=== PATIENT | male | born 1965 | race African-American/Black ===

== ENCOUNTER 2021-11-12 16:47 | Inpatient (IN) | payer OTHER ==
[2021-11-12] MEDS ORDERED: P-EPHED 60MG/TRIPROLIDI 2.5MG TABLET PO PRN (18:57)
[2021-11-12] MEDS ORDERED: guaiFENesin 200 MG/10 ML 10 ML UNIT-DOSE CUPS PO PRN (18:57)
[2021-11-12] MEDS ORDERED: NICOTINE POLACRILEX 2 MG GUM BC PRN (18:57)
[2021-11-12] MEDS ORDERED: MAGNESIUM HYDROX 2400MG/30ML ORAL SUSPENSION 30 ML CUP PO PRN (18:57)
[2021-11-12] MEDS ORDERED: MAG HYDROX/AL HYDROX/SIMETH 30 ML UNIT-DOSE CUP PO PRN (18:57)
[2021-11-12] MEDS ORDERED: LOPERAMIDE HCL 2 MG CAPSULE PO PRN (18:57)
[2021-11-12] MEDS ORDERED: MAGNESIUM CITRATE 300 ML BOTTLE PO PRN (18:57)
[2021-11-12 20:08] VITALS: BMI 20.5
[2021-11-12] MEDS: MELATONIN 5 MG TABLETS PO PRN (22:20)
[2021-11-12] MEDS: THIAMINE HCL 100 MG TABLET (FP) PO SCH (22:20)
[2021-11-12] MEDS: METHOCARBAMOL 500 MG TABLET PO PRN (22:20)
[2021-11-13] MEDS ORDERED: methaDONE HCL 10 MG TABLET PO SCH (07:30)
[2021-11-13] MEDS ORDERED: methaDONE HCL 40 MG DISPERSABLE TABLET ONE (08:04)
[2021-11-13] MEDS ORDERED: methaDONE HCL 10 MG TABLET ONE (08:05)
[2021-11-13] MEDS ORDERED: methaDONE 40 MG, methaDONE 30 MG PO ONE (08:15)
[2021-11-13 09:55] LABS: HEMATOCRIT 34.2 % (35.4-49); HEMOGLOBIN 11.1 GM/dL (11.7-16.9); MCH 28.3 pg (25.7-33.7); MCHC 32.5 g/dl (32.0-35.9); MEAN CELL VOLUME 87.3 fl (80-96); MEAN PLT VOLUME 8.1 fl (7.5-11.1); PLATELET COUNT 333 10^3/uL (134-434); RBC 3.92 M/mm3 (4.00-5.60); WHITE BLOOD COUNT 5.4 K/mm3 (4.0-10.0)
[2021-11-13 10:03] LABS: URINE APPEARANCE CLEAR; URINE BILIRUBIN NEGATIVE (NEGATIVE); URINE COLOR YELLOW; URINE GLUCOSE (UA) NEGATIVE (NEGATIVE); URINE KETONE NEGATIVE (NEGATIVE); URINE LEUK ESTERASE NEGATIVE (NEGATIVE); URINE NITRITE NEGATIVE (NEGATIVE); URINE PROTEIN NEGATIVE (NEGATIVE)
[2021-11-13 10:07] LABS: BLOOD UREA NITROGEN 19.4 mg/dL (7-18); CALCIUM 8.4 mg/dL (8.5-10.1)
[2021-11-13 10:08] LABS: CREATININE 0.9 mg/dL (0.55-1.3)
[2021-11-13 10:09] LABS: TOT PROT 5.9 g/dl (6.4-8.2)
[2021-11-13 10:10] LABS: BILIRUBIN,TOTAL 0.3 mg/dL (0.2-1)
[2021-11-13 10:25] LABS: SYPHILIS W/ RPR CONF NON-REACTIVE (NONREACTIVE)
[2021-11-13] MEDS: PRENATAL VITAMINS W/ FOLIC ACID TABLET (FP) PO SCH (10:43)
[2021-11-13] MEDS: THIAMINE HCL 100 MG TABLET (FP) PO SCH (21:41)
[2021-11-14] MEDS ORDERED: methaDONE HCL 40 MG DISPERSABLE TABLET ONE (05:38)
[2021-11-14] MEDS ORDERED: methaDONE HCL 10 MG TABLET ONE (05:38)
[2021-11-14] MEDS: methaDONE 40 MG, methaDONE 30 MG PO SCH (06:34)
[2021-11-14] MEDS: PRENATAL VITAMINS W/ FOLIC ACID TABLET (FP) PO SCH (11:52)
[2021-11-14] MEDS: MELATONIN 5 MG TABLETS PO PRN (21:09)
[2021-11-14] MEDS: THIAMINE HCL 100 MG TABLET (FP) PO SCH (21:09)
[2021-11-15] MEDS ORDERED: methaDONE HCL 40 MG DISPERSABLE TABLET ONE (02:45)
[2021-11-15] MEDS ORDERED: methaDONE HCL 10 MG TABLET ONE (02:45)
[2021-11-15] MEDS: methaDONE 40 MG, methaDONE 30 MG PO SCH (08:02)
[2021-11-15] MEDS: METHOCARBAMOL 500 MG TABLET PO PRN (08:57)
[2021-11-15] MEDS: PRENATAL VITAMINS W/ FOLIC ACID TABLET (FP) PO SCH (09:40)
[2021-11-15] MEDS: THIAMINE HCL 100 MG TABLET (FP) PO SCH (21:03)
[2021-11-15] MEDS: MELATONIN 5 MG TABLETS PO PRN (21:03)
[2021-11-16] MEDS: IBUPROFEN 400 MG TABLET (FP) PO PRN ×3 (01:35→21:28)
[2021-11-16] MEDS ORDERED: methaDONE HCL 40 MG DISPERSABLE TABLET ONE (04:13)
[2021-11-16] MEDS ORDERED: methaDONE HCL 10 MG TABLET ONE (04:13)
[2021-11-16] MEDS: methaDONE 40 MG, methaDONE 30 MG PO SCH (06:01)
[2021-11-16] MEDS: PRENATAL VITAMINS W/ FOLIC ACID TABLET (FP) PO SCH (10:04)
[2021-11-16] MEDS: THIAMINE HCL 100 MG TABLET (FP) PO SCH (21:28)
[2021-11-17] MEDS ORDERED: methaDONE HCL 10 MG TABLET ONE (03:24)
[2021-11-17] MEDS ORDERED: methaDONE HCL 40 MG DISPERSABLE TABLET ONE (03:24)
[2021-11-17] MEDS: methaDONE 40 MG, methaDONE 30 MG PO SCH (06:24)
[2021-11-17] MEDS: METHOCARBAMOL 500 MG TABLET PO PRN ×2 (08:17→21:16)
[2021-11-17] MEDS: IBUPROFEN 400 MG TABLET (FP) PO PRN (08:17)
[2021-11-17] MEDS: PRENATAL VITAMINS W/ FOLIC ACID TABLET (FP) PO SCH (10:07)
[2021-11-17] MEDS: IBUPROFEN 600 MG TABLET (FP) PO PRN (21:16)
[2021-11-17] MEDS: MELATONIN 5 MG TABLETS PO PRN (21:16)
[2021-11-17] MEDS: THIAMINE HCL 100 MG TABLET (FP) PO SCH (21:17)
[2021-11-18] MEDS ORDERED: methaDONE HCL 10 MG TABLET ONE (02:58)
[2021-11-18] MEDS ORDERED: methaDONE HCL 40 MG DISPERSABLE TABLET ONE (02:58)
[2021-11-18] MEDS: methaDONE 40 MG, methaDONE 30 MG PO SCH (06:27)
[2021-11-18] MEDS: IBUPROFEN 600 MG TABLET (FP) PO PRN ×2 (08:35→21:19)
[2021-11-18] MEDS: METHOCARBAMOL 500 MG TABLET PO PRN ×2 (08:35→21:19)
[2021-11-18] MEDS: PRENATAL VITAMINS W/ FOLIC ACID TABLET (FP) PO SCH (09:22)
[2021-11-18] MEDS: MELATONIN 5 MG TABLETS PO PRN (21:18)
[2021-11-18] MEDS: THIAMINE HCL 100 MG TABLET (FP) PO SCH (21:18)
[2021-11-19] MEDS ORDERED: methaDONE HCL 40 MG DISPERSABLE TABLET ONE (03:43)
[2021-11-19] MEDS ORDERED: methaDONE HCL 10 MG TABLET ONE (03:44)
[2021-11-19] MEDS: methaDONE 40 MG, methaDONE 30 MG PO SCH (06:32)
[2021-11-19 08:06] LABS: SARS-CoV-2 NAA Not Detected (Not Detected)
[2021-11-19] MEDS: METHOCARBAMOL 500 MG TABLET PO PRN ×2 (09:47→21:12)
[2021-11-19] MEDS: PRENATAL VITAMINS W/ FOLIC ACID TABLET (FP) PO SCH (09:47)
[2021-11-19] MEDS: IBUPROFEN 600 MG TABLET (FP) PO PRN ×2 (09:47→21:11)
[2021-11-19] MEDS: MELATONIN 5 MG TABLETS PO PRN (21:12)
[2021-11-19] MEDS: THIAMINE HCL 100 MG TABLET (FP) PO SCH (21:13)
[2021-11-20] MEDS ORDERED: methaDONE HCL 10 MG TABLET ONE (04:25)
[2021-11-20] MEDS ORDERED: methaDONE HCL 40 MG DISPERSABLE TABLET ONE (04:25)
[2021-11-20] MEDS: methaDONE 40 MG, methaDONE 30 MG PO SCH (06:46)
[2021-11-20] MEDS: METHOCARBAMOL 500 MG TABLET PO PRN ×2 (06:49→21:42)
[2021-11-20] MEDS: IBUPROFEN 600 MG TABLET (FP) PO PRN ×2 (06:49→21:40)
[2021-11-20] MEDS: PRENATAL VITAMINS W/ FOLIC ACID TABLET (FP) PO SCH (10:16)
[2021-11-20] MEDS: LIDOCAINE 5% TOPICAL PATCH TP SCH (12:15)
[2021-11-20] MEDS: MELATONIN 5 MG TABLETS PO PRN (21:39)
[2021-11-20] MEDS: THIAMINE HCL 100 MG TABLET (FP) PO SCH (21:39)
[2021-11-20] MEDS: LIDOCAINE PATCH REMOVAL MC SCH (21:52)
[2021-11-21] MEDS ORDERED: methaDONE HCL 40 MG DISPERSABLE TABLET PO SCH (08:00)
[2021-11-21] MEDS ORDERED: methaDONE HCL 40 MG DISPERSABLE TABLET ONE (08:00)
[2021-11-21] MEDS ORDERED: methaDONE HCL 10 MG TABLET ONE (08:00)
[2021-11-21] MEDS: methaDONE 40 MG, methaDONE 30 MG PO SCH (08:02)
[2021-11-21] MEDS: METHOCARBAMOL 500 MG TABLET PO PRN ×2 (09:52→22:16)
[2021-11-21] MEDS: PRENATAL VITAMINS W/ FOLIC ACID TABLET (FP) PO SCH (09:52)
[2021-11-21] MEDS: IBUPROFEN 600 MG TABLET (FP) PO PRN ×2 (09:52→22:16)
[2021-11-21] MEDS: LIDOCAINE 5% TOPICAL PATCH TP SCH (09:53)
[2021-11-21] MEDS: THIAMINE HCL 100 MG TABLET (FP) PO SCH (22:16)
[2021-11-21] MEDS: LIDOCAINE PATCH REMOVAL MC SCH (22:17)
[2021-11-21] MEDS: MELATONIN 5 MG TABLETS PO PRN (22:19)
[2021-11-22] MEDS ORDERED: methaDONE HCL 10 MG TABLET ONE (03:40)
[2021-11-22] MEDS ORDERED: methaDONE HCL 40 MG DISPERSABLE TABLET ONE (03:41)
[2021-11-22] MEDS: methaDONE 40 MG, methaDONE 30 MG PO SCH (06:53)
[2021-11-22] MEDS: PRENATAL VITAMINS W/ FOLIC ACID TABLET (FP) PO SCH (09:47)
[2021-11-22] MEDS: LIDOCAINE 5% TOPICAL PATCH TP SCH (09:47)
[2021-11-22] MEDS: IBUPROFEN 600 MG TABLET (FP) PO PRN ×2 (09:49→22:05)
[2021-11-22] MEDS: METHOCARBAMOL 500 MG TABLET PO PRN (22:06)
[2021-11-22] MEDS: THIAMINE HCL 100 MG TABLET (FP) PO SCH (22:06)
[2021-11-22] MEDS: MELATONIN 5 MG TABLETS PO PRN (22:07)
[2021-11-22] MEDS: LIDOCAINE PATCH REMOVAL MC SCH (22:10)
[2021-11-23] MEDS ORDERED: methaDONE HCL 10 MG TABLET ONE (03:37)
[2021-11-23] MEDS ORDERED: methaDONE HCL 40 MG DISPERSABLE TABLET ONE (03:38)
[2021-11-23] MEDS: METHOCARBAMOL 500 MG TABLET PO PRN ×2 (07:00→21:28)
[2021-11-23] MEDS: methaDONE 40 MG, methaDONE 30 MG PO SCH (07:00)
[2021-11-23] MEDS: LIDOCAINE 5% TOPICAL PATCH TP SCH (09:59)
[2021-11-23] MEDS: PRENATAL VITAMINS W/ FOLIC ACID TABLET (FP) PO SCH (09:59)
[2021-11-23] MEDS: IBUPROFEN 600 MG TABLET (FP) PO PRN ×2 (10:01→21:27)
[2021-11-23] MEDS: LIDOCAINE PATCH REMOVAL MC SCH (21:27)
[2021-11-23] MEDS: THIAMINE HCL 100 MG TABLET (FP) PO SCH (21:27)
[2021-11-23] MEDS: MELATONIN 5 MG TABLETS PO PRN (21:28)
[2021-11-24] MEDS ORDERED: methaDONE HCL 40 MG DISPERSABLE TABLET ONE (03:04)
[2021-11-24] MEDS ORDERED: methaDONE HCL 10 MG TABLET ONE (03:04)
[2021-11-24] MEDS: methaDONE 40 MG, methaDONE 30 MG PO SCH (07:17)
[2021-11-24] MEDS: LIDOCAINE 5% TOPICAL PATCH TP SCH (10:26)
[2021-11-24] MEDS: IBUPROFEN 600 MG TABLET (FP) PO PRN ×2 (10:27→21:16)
[2021-11-24] MEDS: METHOCARBAMOL 500 MG TABLET PO PRN (10:27)
[2021-11-24] MEDS: PRENATAL VITAMINS W/ FOLIC ACID TABLET (FP) PO SCH (10:27)
[2021-11-24] MEDS: LIDOCAINE PATCH REMOVAL MC SCH (21:15)
[2021-11-24] MEDS: MELATONIN 5 MG TABLETS PO PRN (21:15)
[2021-11-24] MEDS: THIAMINE HCL 100 MG TABLET (FP) PO SCH (21:15)
[2021-11-25] MEDS ORDERED: methaDONE HCL 10 MG TABLET ONE (02:55)
[2021-11-25] MEDS ORDERED: methaDONE HCL 40 MG DISPERSABLE TABLET ONE (02:56)
[2021-11-25] MEDS: methaDONE 40 MG, methaDONE 30 MG PO SCH (06:40)
[2021-11-25] MEDS: PRENATAL VITAMINS W/ FOLIC ACID TABLET (FP) PO SCH (10:08)
[2021-11-25] MEDS: LIDOCAINE 5% TOPICAL PATCH TP SCH (10:09)
[2021-11-25] MEDS: THIAMINE HCL 100 MG TABLET (FP) PO SCH (21:33)
[2021-11-25] MEDS: MELATONIN 5 MG TABLETS PO PRN (21:33)
[2021-11-25] MEDS: METHOCARBAMOL 500 MG TABLET PO PRN (21:33)
[2021-11-25] MEDS: LIDOCAINE PATCH REMOVAL MC SCH (21:49)
[2021-11-26] MEDS ORDERED: methaDONE HCL 40 MG DISPERSABLE TABLET ONE (03:10)
[2021-11-26] MEDS ORDERED: methaDONE HCL 10 MG TABLET ONE (03:10)
[2021-11-26] MEDS: methaDONE 40 MG, methaDONE 30 MG PO SCH (06:24)
[2021-11-26] MEDS: LIDOCAINE 5% TOPICAL PATCH TP SCH (10:15)
[2021-11-26] MEDS: PRENATAL VITAMINS W/ FOLIC ACID TABLET (FP) PO SCH (10:15)
[2021-11-26] MEDS: METHOCARBAMOL 500 MG TABLET PO PRN (10:17)
[2021-11-26] MEDS: THIAMINE HCL 100 MG TABLET (FP) PO SCH (21:25)
[2021-11-26] MEDS: MELATONIN 5 MG TABLETS PO PRN (21:25)
[2021-11-26] MEDS: LIDOCAINE PATCH REMOVAL MC SCH (21:49)
[2021-11-27] MEDS ORDERED: methaDONE HCL 10 MG TABLET ONE (03:48)
[2021-11-27] MEDS ORDERED: methaDONE HCL 40 MG DISPERSABLE TABLET ONE (03:48)
[2021-11-27] MEDS: methaDONE 40 MG, methaDONE 30 MG PO SCH (06:49)
[2021-11-27] MEDS: PRENATAL VITAMINS W/ FOLIC ACID TABLET (FP) PO SCH (10:09)
[2021-11-27] MEDS: LIDOCAINE 5% TOPICAL PATCH TP SCH (10:10)
[2021-11-27] MEDS: METHOCARBAMOL 500 MG TABLET PO PRN (10:11)
[2021-11-27] MEDS: THIAMINE HCL 100 MG TABLET (FP) PO SCH (21:24)
[2021-11-27] MEDS: LIDOCAINE PATCH REMOVAL MC SCH (21:24)
[2021-11-27] MEDS: MELATONIN 5 MG TABLETS PO PRN (21:25)
[2021-11-27] MEDS: IBUPROFEN 600 MG TABLET (FP) PO PRN (21:26)
[2021-11-28] MEDS ORDERED: methaDONE HCL 10 MG TABLET ONE (03:06)
[2021-11-28] MEDS ORDERED: methaDONE HCL 40 MG DISPERSABLE TABLET ONE (03:07)
[2021-11-28] MEDS: methaDONE 40 MG, methaDONE 30 MG PO SCH (06:54)
[2021-11-28] MEDS: PRENATAL VITAMINS W/ FOLIC ACID TABLET (FP) PO SCH (10:01)
[2021-11-28] MEDS: IBUPROFEN 600 MG TABLET (FP) PO PRN (10:01)
[2021-11-28] MEDS: METHOCARBAMOL 500 MG TABLET PO PRN ×2 (10:01→21:20)
[2021-11-28] MEDS: LIDOCAINE 5% TOPICAL PATCH TP SCH (10:02)
[2021-11-28] MEDS: MELATONIN 5 MG TABLETS PO PRN (21:20)
[2021-11-28] MEDS: LIDOCAINE PATCH REMOVAL MC SCH (21:20)
[2021-11-28] MEDS: THIAMINE HCL 100 MG TABLET (FP) PO SCH (21:20)
[2021-11-29] MEDS ORDERED: methaDONE HCL 40 MG DISPERSABLE TABLET PO SCH (07:15)
[2021-11-29] MEDS: methaDONE 40 MG, methaDONE 30 MG PO SCH (07:24)
[2021-11-29] MEDS ORDERED: methaDONE HCL 40 MG DISPERSABLE TABLET ONE (07:24)
[2021-11-29] MEDS ORDERED: methaDONE HCL 10 MG TABLET ONE (07:24)
[2021-11-29] MEDS: PRENATAL VITAMINS W/ FOLIC ACID TABLET (FP) PO SCH (09:53)
[2021-11-29] MEDS: METHOCARBAMOL 500 MG TABLET PO PRN ×2 (09:54→21:15)
[2021-11-29] MEDS: LIDOCAINE 5% TOPICAL PATCH TP SCH (10:11)
[2021-11-29] MEDS: LIDOCAINE PATCH REMOVAL MC SCH (21:15)
[2021-11-29] MEDS: MELATONIN 5 MG TABLETS PO PRN (21:15)
[2021-11-29] MEDS: THIAMINE HCL 100 MG TABLET (FP) PO SCH (21:15)
[2021-11-30] MEDS ORDERED: methaDONE HCL 40 MG DISPERSABLE TABLET ONE (03:05)
[2021-11-30] MEDS ORDERED: methaDONE HCL 10 MG TABLET ONE (03:05)
[2021-11-30] MEDS: methaDONE 40 MG, methaDONE 30 MG PO SCH (06:30)
[2021-11-30] MEDS: PRENATAL VITAMINS W/ FOLIC ACID TABLET (FP) PO SCH (09:40)
[2021-11-30] MEDS: LIDOCAINE 5% TOPICAL PATCH TP SCH (09:40)
[2021-11-30] MEDS: METHOCARBAMOL 500 MG TABLET PO PRN ×2 (09:41→21:26)
[2021-11-30] MEDS: MELATONIN 5 MG TABLETS PO PRN (21:26)
[2021-11-30] MEDS: THIAMINE HCL 100 MG TABLET (FP) PO SCH (21:26)
[2021-11-30] MEDS: LIDOCAINE PATCH REMOVAL MC SCH (21:26)
[2021-12-01] MEDS ORDERED: methaDONE HCL 40 MG DISPERSABLE TABLET ONE (05:28)
[2021-12-01] MEDS ORDERED: methaDONE HCL 10 MG TABLET ONE (05:28)
[2021-12-01] MEDS: methaDONE 40 MG, methaDONE 30 MG PO SCH (06:40)
[2021-12-01] MEDS: PRENATAL VITAMINS W/ FOLIC ACID TABLET (FP) PO SCH (10:10)
[2021-12-01] MEDS: LIDOCAINE 5% TOPICAL PATCH TP SCH (10:10)
[2021-12-01] MEDS: METHOCARBAMOL 500 MG TABLET PO PRN (10:11)
[2021-12-01] MEDS: LIDOCAINE PATCH REMOVAL MC SCH (21:33)
[2021-12-01] MEDS: IBUPROFEN 600 MG TABLET (FP) PO PRN (21:37)
[2021-12-01] MEDS: THIAMINE HCL 100 MG TABLET (FP) PO SCH (21:38)
[2021-12-01] MEDS: MELATONIN 5 MG TABLETS PO PRN (21:38)
[2021-12-02] MEDS ORDERED: methaDONE HCL 40 MG DISPERSABLE TABLET ONE (02:43)
[2021-12-02] MEDS ORDERED: methaDONE HCL 10 MG TABLET ONE (02:43)
[2021-12-02] MEDS: methaDONE 40 MG, methaDONE 30 MG PO SCH (06:49)
[2021-12-02] MEDS: METHOCARBAMOL 500 MG TABLET PO PRN ×2 (06:51→21:29)
[2021-12-02] MEDS: PRENATAL VITAMINS W/ FOLIC ACID TABLET (FP) PO SCH (10:04)
[2021-12-02] MEDS: LIDOCAINE 5% TOPICAL PATCH TP SCH (10:04)
[2021-12-02] MEDS: IBUPROFEN 600 MG TABLET (FP) PO PRN (10:06)
[2021-12-02] MEDS: THIAMINE HCL 100 MG TABLET (FP) PO SCH (21:29)
[2021-12-02] MEDS: LIDOCAINE PATCH REMOVAL MC SCH (21:29)
[2021-12-02] MEDS: MELATONIN 5 MG TABLETS PO PRN (21:29)
[2021-12-03] MEDS ORDERED: methaDONE HCL 10 MG TABLET ONE (02:54)
[2021-12-03] MEDS ORDERED: methaDONE HCL 40 MG DISPERSABLE TABLET ONE (02:54)
[2021-12-03] MEDS: methaDONE 40 MG, methaDONE 30 MG PO SCH (06:41)
[2021-12-03] MEDS: LIDOCAINE 5% TOPICAL PATCH TP SCH (10:25)
[2021-12-03] MEDS: PRENATAL VITAMINS W/ FOLIC ACID TABLET (FP) PO SCH (10:25)
[2021-12-03] MEDS: METHOCARBAMOL 500 MG TABLET PO PRN (22:33)
[2021-12-03] MEDS: IBUPROFEN 600 MG TABLET (FP) PO PRN (22:33)
[2021-12-03] MEDS: THIAMINE HCL 100 MG TABLET (FP) PO SCH (22:33)
[2021-12-03] MEDS: LIDOCAINE PATCH REMOVAL MC SCH (22:37)
[2021-12-04] MEDS ORDERED: methaDONE HCL 10 MG TABLET ONE (05:43)
[2021-12-04] MEDS ORDERED: methaDONE HCL 40 MG DISPERSABLE TABLET ONE (05:44)
[2021-12-04] MEDS: methaDONE 40 MG, methaDONE 30 MG PO SCH (06:49)
[2021-12-04] MEDS: LIDOCAINE 5% TOPICAL PATCH TP SCH (09:54)
[2021-12-04] MEDS: METHOCARBAMOL 500 MG TABLET PO PRN ×2 (09:55→21:38)
[2021-12-04] MEDS: PRENATAL VITAMINS W/ FOLIC ACID TABLET (FP) PO SCH (09:55)
[2021-12-04] MEDS: LIDOCAINE PATCH REMOVAL MC SCH (21:37)
[2021-12-04] MEDS: THIAMINE HCL 100 MG TABLET (FP) PO SCH (21:38)
[2021-12-04] MEDS: MELATONIN 5 MG TABLETS PO PRN (21:38)
[2021-12-05] MEDS ORDERED: methaDONE HCL 10 MG TABLET ONE (03:31)
[2021-12-05] MEDS ORDERED: methaDONE HCL 40 MG DISPERSABLE TABLET ONE (03:31)
[2021-12-05] MEDS: methaDONE 40 MG, methaDONE 30 MG PO SCH (06:55)
[2021-12-05] MEDS: PRENATAL VITAMINS W/ FOLIC ACID TABLET (FP) PO SCH (10:33)
[2021-12-05] MEDS: LIDOCAINE 5% TOPICAL PATCH TP SCH (10:33)
[2021-12-05] MEDS: METHOCARBAMOL 500 MG TABLET PO PRN ×2 (10:35→21:52)
[2021-12-05] MEDS: IBUPROFEN 600 MG TABLET (FP) PO PRN ×2 (10:35→21:51)
[2021-12-05] MEDS: LIDOCAINE PATCH REMOVAL MC SCH (21:51)
[2021-12-05] MEDS: THIAMINE HCL 100 MG TABLET (FP) PO SCH (21:51)
[2021-12-06] MEDS ORDERED: methaDONE HCL 10 MG TABLET ONE (04:36)
[2021-12-06] MEDS ORDERED: methaDONE HCL 40 MG DISPERSABLE TABLET ONE (04:37)
[2021-12-06] MEDS: methaDONE 40 MG, methaDONE 30 MG PO SCH (06:30)
[2021-12-06] MEDS: PRENATAL VITAMINS W/ FOLIC ACID TABLET (FP) PO SCH (10:15)
[2021-12-06] MEDS: METHOCARBAMOL 500 MG TABLET PO PRN ×2 (10:15→21:34)
[2021-12-06] MEDS: LIDOCAINE 5% TOPICAL PATCH TP SCH (10:16)
[2021-12-06] MEDS: THIAMINE HCL 100 MG TABLET (FP) PO SCH (21:33)
[2021-12-06] MEDS: LIDOCAINE PATCH REMOVAL MC SCH (21:33)
[2021-12-06] MEDS: MELATONIN 5 MG TABLETS PO PRN (21:35)
[2021-12-07] MEDS ORDERED: methaDONE HCL 10 MG TABLET ONE (06:03)
[2021-12-07] MEDS ORDERED: methaDONE HCL 40 MG DISPERSABLE TABLET ONE (06:03)
[2021-12-07] MEDS: methaDONE 40 MG, methaDONE 30 MG PO SCH (06:55)
[2021-12-07] MEDS: LIDOCAINE 5% TOPICAL PATCH TP SCH (10:06)
[2021-12-07] MEDS: PRENATAL VITAMINS W/ FOLIC ACID TABLET (FP) PO SCH (10:06)
[2021-12-07] MEDS: METHOCARBAMOL 500 MG TABLET PO PRN ×2 (10:06→21:41)
[2021-12-07] MEDS ORDERED: MODERNA COVID-19 VACC,MRNA/PF 100 MCG/0.5 ML IM ONE (12:00)
[2021-12-07] MEDS: TOLNAFTATE 1% CREAM 15 GM TUBE TP SCH ×2 (13:11→21:43)
[2021-12-07] MEDS: LIDOCAINE PATCH REMOVAL MC SCH (21:39)
[2021-12-07] MEDS: THIAMINE HCL 100 MG TABLET (FP) PO SCH (21:41)
[2021-12-07] MEDS: IBUPROFEN 600 MG TABLET (FP) PO PRN (21:41)
[2021-12-07] MEDS: MELATONIN 5 MG TABLETS PO PRN (21:42)
[2021-12-08] MEDS ORDERED: methaDONE HCL 10 MG TABLET ONE (02:45)
[2021-12-08] MEDS ORDERED: methaDONE HCL 40 MG DISPERSABLE TABLET ONE (02:46)
[2021-12-08] MEDS: methaDONE 40 MG, methaDONE 30 MG PO SCH (07:47)
[2021-12-08] MEDS: IBUPROFEN 600 MG TABLET (FP) PO PRN (07:54)
[2021-12-08] MEDS: METHOCARBAMOL 500 MG TABLET PO PRN ×2 (08:00→21:30)
[2021-12-08] MEDS: ACETAMINOPHEN 325 MG TABLET (FP) PO PRN ×3 (08:00→21:32)
[2021-12-08] MEDS: LIDOCAINE 5% TOPICAL PATCH TP SCH (10:00)
[2021-12-08] MEDS: PRENATAL VITAMINS W/ FOLIC ACID TABLET (FP) PO SCH (10:00)
[2021-12-08] MEDS: TOLNAFTATE 1% CREAM 15 GM TUBE TP SCH ×2 (10:03→21:31)
[2021-12-08] MEDS: THIAMINE HCL 100 MG TABLET (FP) PO SCH (21:30)
[2021-12-08] MEDS: LIDOCAINE PATCH REMOVAL MC SCH (21:30)
[2021-12-08] MEDS: SUVOREXANT 10 MG TABLET PO PRN (21:31)
[2021-12-09] MEDS ORDERED: methaDONE HCL 40 MG DISPERSABLE TABLET ONE (02:38)
[2021-12-09] MEDS ORDERED: methaDONE HCL 10 MG TABLET ONE (02:38)
[2021-12-09] MEDS: methaDONE 40 MG, methaDONE 30 MG PO SCH (06:55)
[2021-12-09] MEDS: ACETAMINOPHEN 325 MG TABLET (FP) PO PRN (07:06)
[2021-12-09] MEDS: PRENATAL VITAMINS W/ FOLIC ACID TABLET (FP) PO SCH (09:52)
[2021-12-09] MEDS: METHOCARBAMOL 500 MG TABLET PO PRN ×2 (09:53→21:31)
[2021-12-09] MEDS: LIDOCAINE 5% TOPICAL PATCH TP SCH (09:53)
[2021-12-09] MEDS: TOLNAFTATE 1% CREAM 15 GM TUBE TP SCH ×2 (09:53→21:31)
[2021-12-09] MEDS: THIAMINE HCL 100 MG TABLET (FP) PO SCH (21:31)
[2021-12-09] MEDS: LIDOCAINE PATCH REMOVAL MC SCH (21:31)
[2021-12-09] MEDS: SUVOREXANT 10 MG TABLET PO PRN (21:33)
[2021-12-09] MEDS: IBUPROFEN 600 MG TABLET (FP) PO PRN (21:34)
[2021-12-10] MEDS: methaDONE 40 MG, methaDONE 30 MG PO SCH (06:12)
[2021-12-10 07:13] VITALS: BP 110/73; PULSE 58; TEMP 97.7
[2021-12-10] MEDS: LIDOCAINE 5% TOPICAL PATCH TP SCH (10:04)
[2021-12-10] MEDS: PRENATAL VITAMINS W/ FOLIC ACID TABLET (FP) PO SCH (10:04)
[2021-12-10] MEDS: TOLNAFTATE 1% CREAM 15 GM TUBE TP SCH (10:04)
== END 2021-12-10 08:40 | disposition other institution (70) | DRG 772 ==
LOC: YASAS 16:47 → Y3W 20:50 → Y5N 11-19 14:39
PROVIDERS: ADMIT Allergy & Immunology; ATTEND Allergy & Immunology
PROC: HZ42ZZZ Group Counseling for Substance Abuse Treatment, Cognitive-Behavioral (ICD-10-PCS; principal; 2021-11-12)
DX: F11.20 Opioid dependence, uncomplicated (principal); F14.20 Cocaine dependence, uncomplicated; F17.210 Nicotine dependence, cigarettes, uncomplicated; F19.282 Other psychoactive substance dependence with psychoactive substance-induced sleep disorder; M54.50 Low back pain, unspecified; M25.551 Pain in right hip; R35.0 Frequency of micturition; W19.XXXA Unspecified fall, initial encounter; Y92.238 Other place in hospital as the place of occurrence of the external cause; Z99.89 Dependence on other enabling machines and devices; Z56.0 Unemployment, unspecified; Z59.00 Homelessness unspecified
CPT/HCPCS: 0012A; 36415; 71046-TC-FY; 80053; 81003; 82962; 85027; 86780; 86803; 87811; 91301; C9803; U0003; U0005

== ENCOUNTER 2021-11-15 12:07 | Emergency (ER) | payer OTHER ==
[2021-11-15] MEDS ORDERED: IBUPROFEN 400 MG TABLET (FP) PO ONE (12:47)
[2021-11-15] MEDS ORDERED: LIDOCAINE 5% TOPICAL PATCH TP ONE (12:47)
[2021-11-15 12:57] VITALS: BP 102/55; PULSE 53; TEMP 98.3; BMI 24.3
[2021-11-15] MEDS ORDERED: LIDOCAINE 5% TOPICAL PATCH ONE (12:59)
[2021-11-15] MEDS ORDERED: IBUPROFEN 600 MG TABLET (FP) PO ONE (12:59)
[2021-11-16] MEDS ORDERED: LIDOCAINE PATCH REMOVAL MC SCH (00:45)
== END 2021-11-15 15:55 | disposition home or self-care (01) ==
LOC: JER 12:07
DX: M54.50 Low back pain, unspecified (principal); F11.20 Opioid dependence, uncomplicated; F14.21 Cocaine dependence, in remission
CPT/HCPCS: 99283-25

== ENCOUNTER 2021-12-03 10:38 | Emergency (ER) | payer OTHER ==
[2021-12-03 11:22] VITALS: BP 124/73; PULSE 68; TEMP 97.8; BMI 24.3
[2021-12-03 12:57] LABS: URINE APPEARANCE CLEAR; URINE BILIRUBIN NEGATIVE (NEGATIVE); URINE COLOR YELLOW; URINE GLUCOSE (UA) NEGATIVE (NEGATIVE); URINE KETONE NEGATIVE (NEGATIVE); URINE LEUK ESTERASE NEGATIVE (NEGATIVE); URINE NITRITE NEGATIVE (NEGATIVE); URINE PROTEIN NEGATIVE (NEGATIVE); URINE UROBILINOGEN 0.2 mg/dL (0.2-1.0)
== END 2021-12-03 15:10 | disposition home or self-care (01) ==
LOC: JERFT 10:38
DX: R35.0 Frequency of micturition (principal); W19.XXXA Unspecified fall, initial encounter
CPT/HCPCS: 70450-TC; 76856-TC; 81003; 87086; 99285-25